=== PATIENT | male | born 1990 | race Caucasian/White ===

== ENCOUNTER 2022-12-08 09:09 | Emergency (ER) | payer SELFPAY ==
[2022-12-08 09:10] VITALS: BP 153/55; PULSE 89; RESP 15; TEMP 36.9; O2SAT 97; BMI 33.4
--- NOTE | 2022-12-08 09:39 | HMH.EDGENADL ---
Discharge Plan Disposition Patient Disposition: Home, Self-Care Condition: Good Prescriptions Prescriptions: No Action No Known Home Medications Activity Restrictions/Add. Instructions Additional Instructions/Restrictions: Drink more fluids while at work. I would add at least 2 L more liquid which you are currently drinking. Drinking sports drinks with electrolytes at work may help reduce your cramping. You should urinate pale urine and should urinate a couple more times during your shift than you are currently doing. You are being provided with a list of physicians available for follow-up of your condition. Please call a physician on this list to arrange a follow-up appointment as soon as possible. Clinical Impressions Clinical Impression: Acute dehydration, Cramps, muscle, general Instructions Patient Instructions: DI for Dehydration -- Adult Discharge ED Provider: Scott Murillo General Adult HPI General Chief complaint: Weakness Stated complaint: stomach cramps Time Seen by Provider: 12/08/22 09:30 Mode of Arrival: Ambulatory Source of Information: Patient Limitations: No Limitations Description of Symptoms (Recalled from ER Triage Doc. by RN): pt comes in [facility] c/o body aches, muscle spasms. pt states that he started a new job a few weeks ago and since then has been having these muscle cramps. symptoms off and on. History of Present Illness HPI narrative: States that he gets muscle spasms and cramps off and on for the past 9 months. 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 States it involves all muscles, more so his hamstrings. Cramps will last for several hours after he gets off of work. States that he tries to stay hydrated during his shift but works a long shift, 12 hours, and usually will only urinate once or twice. Decided to come in today just to figure out how to keep it from happening. Denies any chronic medical problems except mental health issues . He is on no prescription medications. He is a smoker. Denies alcohol use. Admits to using marijuana, but denies other drug use. Related Data Home Medications Medication Instructions Recorded Confirmed No Known Home Medications 12/08/22 12/08/22 Allergies Allergy/AdvReac Type Severity Reaction Status Date / Time No Known Allergies Allergy Verified 12/08/22 09:29 [facility] Disclaimer: The information contained in this section may have been updated after the patient was seen, as this information can be updated by other users. Social History Smoking Status: Current every day smoker ROS Obtained: Yes Systems reviewed as appropriate & no additional complaints except as documented Constitutional Constitutional: Reports body ache, Denies fever(s), Denies headache(s) and Denies weakness ENT Ears, Nose, Mouth, and Throat: Denies headache(s), Denies nasal discharge and Denies sore throat Cardiovascular Cardiovascular: Denies chest pain Respiratory Respiratory: Denies shortness of breath and Denies cough Gastrointestinal Gastrointestingal: Denies abdominal pain, constipation, diarrhea or vomiting Genitourinary Male Genitourinary: Denies difficulty urinating and Denies flank pain Musculoskeletal Musculoskeletal: Reports muscle cramps, Reports myalgias and Denies numbness Neurologic Neurologic: Denies headache(s), Denies numbness and Denies weakness Physical Exam General General appearance: alert and in no apparent distress Head Head exam: atraumatic and normocephalic Eye Eye exam: Present normal appearance and EOMI ENT ENT exam: Present mucous membranes moist Neck Neck exam: Present normal inspection and trachea midline Chest Chest inspection: Present normal inspection and symmetric chest wall rise Respiratory Respiratory exam: Present jo
[2022-12-08 09:49] LABS: Basophils # 0.1 K/mm3 (0-0.2); Basophils % 1.1 % (0.1-2.0); Chloride 99 mmol/L (98-107); Eosinophils # 0.1 K/mm3 (0.0-0.4); Eosinophils % 1.2 % (0.1-12.0); Hematocrit 48.5 % (42.0-52.0); Hemoglobin 16.5 g/dL (14.1-18.0); Lymphocytes # 2.5 K/mm3 (0.7-4.5); Lymphocytes % 22.6 % (10-50); Mean Corpuscular Hemoglobin 30.2 pg (27.0-31.2); Mean Corpuscular Volume 88.8 fl (80-94); Mean Platelet Volume 8.3 fl (7.4-10.4); Monocytes # 0.5 K/mm3 (0.1-1.0); Monocytes % 4.9 % (1.7-9.3); Neutrophils # 7.8 K/mm3 (1.8-7.8); Neutrophils % 70.2 % (37.0-80.0); Platelet Count 250 K/mm3 (142-424); Potassium 3.8 mmoL/L (3.5-5.1); Red Blood Count 5.46 M/mm3 (4.60-6.20); Red Cell Distribution Width 13.9 % (11.5-17.5); Sodium 138 mmol/L (136-145); White Blood Count 11.1 K/mm3 (4.8-10.8)
[2022-12-08 09:52] LABS: Alanine Aminotransferase 52 U/L (12-78); Albumin/Globulin Ratio 1.4 (1.1-1.8); Alkaline Phosphatase 91 U/L (38-126); Anion Gap 15.8 mEq/L (5-15); Aspartate Amino Transferase 73 U/L (17-59); Bilirubin,Total 0.6 mg/dl (0.2-1.3); Blood Urea Nitrogen 32 mg/dl (9-20); Calcium 9.1 mg/dl (8.4-10.2); Carbon Dioxide 27 mmol/L (22.0-30.0); Creatine Kinase 934 U/L (55-170); Creatinine Clearance Estimated 134 mL/min (50-200); Estimated Glomerular Filt Rate 77 ml/min (>60); GFR (African American) 93 ML/MIN (>60); Globulin 3.5 g/dL (1.3-3.2); Glucose 122 mg/dl (74-100); Total Protein,Serum 8.5 g/dl (6.3-8.2)
[2022-12-08 09:55] VITALS: BP 123/81; PULSE 77; O2SAT 98
[2022-12-08 10:01] VITALS: BP 161/57; PULSE 72; O2SAT 95
[2022-12-08 10:13] LABS: Magnesium 2.2 mg/dl (1.6-2.3)
[2022-12-08 12:15] VITALS: BP 137/81; PULSE 70; RESP 18; TEMP 37; O2SAT 95
[2022-12-08 12:15] LABS: Microscopic, Urine URINE MICROSCOPIC (MICROSCOPIC)
[2022-12-08 12:18] LABS: Appearance,Urine CLEAR (Clear); Bilirubin,Urine Negative (Negative); Blood, Urine Negative (Negative); Color,Urine YELLOW (Yellow); Glucose,Urine (UA) Negative (Negative); Ketones,Urine Negative (Negative); Leukocyte Esterase,Urine Negative (Negative); Nitrate,Urine Negative (Negative); PH,Urine 6.5 (5.0-8.5); Protein,Urine Negative (Negative); Specific Gravity, Urine 1.015 (1.005-1.030); Urobilinogen,Urine 0.2 EU/dl (0.2)
[2022-12-08 12:30] LABS: Amphetamine/Metha Screen,Urine Negative ng/ml (<1000); Squamous Epithelial Cell,Urine Occasional #/hpf (0-5)
[2022-12-08 12:31] LABS: Barbiturates Screen,Urine Negative ng/ml (<200); Benzodiazepines Screen,Urine Negative ng/ml (<200)
[2022-12-08 12:32] LABS: Cannabinoid Screen,Urine Positive ng/ml (<50)
[2022-12-08 12:33] LABS: Cocaine Screen,Urine Negative ng/ml (<300); Methadone Screen,Urine Negative ng/ml (<300)
[2022-12-08 12:34] LABS: Opiate Screen,Urine Negative ng/ml (<300)
[2022-12-08 12:35] LABS: Phencyclidine Screen,Urine Negative ng/ml (<25)
== END 2022-12-08 12:10 | disposition home or self-care (01) ==
PROVIDERS: Emergency Provider Emergency Medicine
DX: E86.0 Dehydration (principal); F17.210 Nicotine dependence, cigarettes, uncomplicated; R25.2 Cramp and spasm
CPT/HCPCS: 80053; 80305; 81001; 82550; 83735; 85025; 96361; 96374; 99285; J2405

== ENCOUNTER 2023-03-02 13:06 | Emergency (ER) | payer BC, SELFPAY ==
[2023-03-02 13:08] VITALS: BP 128/83; PULSE 80; RESP 20; TEMP 36.8; O2SAT 98; BMI 34.9
--- NOTE | 2023-03-02 13:24 | EXP.UTC ---
Discharge Plan Disposition Patient Disposition: Home, Self-Care Condition: Good Prescriptions Prescriptions: New mupirocin 2 % ointment 1 applic topical TID 7 Days Qty: 15 0RF amoxicillin-pot clavulanate 875-125 mg Tablet 1 tab PO Q12H Qty: 20 0RF Referrals Follow up/Referrals: Provider,Referral, [Primary Care Provider] - See instructions Activity Restrictions/Add. Instructions Additional Instructions/Restrictions: Keep the wound clean and dry. Keep a dressing on it if you are going to be getting it dirty. Watch the wound for signs of infection, such as redness, swelling, drainage, fever. etc. Take tylenol or ibuprofen for pain. Follow up with your regular doctor. GO TO THE ER FOR ANY WORSENING SYMPTOMS OR CONCERNS. I put in a referral to orthopedics. If you continue to have symptoms that are not improving after the next 48 to 72 hours, please call and get an appointment to be rechecked there. in rare cases, there can be nerve or tendon damage that requires further assessment and treatment. Clinical Impressions Clinical Impression: Puncture wound of left hand, Need for Tdap vaccination Instructions Patient Instructions: DI for Puncture Wound, Tetanus, Diphtheria, Pertussis (Tdap) Vaccine Discharge ED Provider: Edu Moreno [facility] General Stated complaint: AO 02/28 Dirty nail went in hand Mode of Arrival: Ambulatory Source of Information: Patient Limitations: No Limitations Time Seen by Provider: 03/02/23 13:24 Description of Symptoms (Recalled from Triage Doc. by RN): nail elizabeth into left hand at work HEENT Symptoms (Recalled from RN notes): Yes Resp Symptoms (Recalled from RN notes): No Skin Symptoms (Recalled from RN notes): No MS Symptoms (Recalled from RN notes): No Functional Status (Recalled from RN notes): n/a History of Present Illness Provider Complaint: He states that 2 days ago he was pushing a wall down when it fell and a nail punctured the palm of his left hand. Since then he has had pain at the site. His tetanus immunization is not up to date. Related Data Previous Rx's Medication Instructions Recorded amoxicillin 875 mg-potassium 1 tab PO Q12H #20 tabs 03/02/23 clavulanate 125 mg tablet mupirocin 2 % topical ointment 1 applic topical TID 7 days #15 03/02/23 grams Allergies Allergy/AdvReac Type Severity Reaction Status Date / Time No Known Allergies Allergy Verified 03/02/23 13:22 Worker's Comp Is this a Worker's Comp case?: No [facility] Disclaimer: The information contained in this section may have been updated after the patient was seen, as this information can be updated by other users. Social History Smoking Status: Current every day smoker alcohol intake: never current occupational status: employed Travel in the last 8 weeks: None ROS Obtained: Yes All systems reviewed & no additional complaints except as documented Constitutional Constitutional: Denies chills and Denies fever(s) Eyes Eyes: Denies eye discharge ENT Ears, Nose, Mouth, and Throat: Denies dizziness, Denies otalgia and Denies sore throat Cardiovascular Cardiovascular: Denies chest pain Respiratory Respiratory: Denies shortness of breath, Denies chest congestion, Denies cough, Denies stridor and Denies wheezing Gastrointestinal Gastrointestingal: Denies nausea or vomiting Musculoskeletal Musculoskeletal: Reports as per HPI and Denies arthralgias Integumentary/Breasts Skin/Breast: Reports as per HPI Neurologic Neurologic: Denies dizziness and Denies paresthesias Allergic/Immunologic Allergic/Immunologic: Denies wheezing Physical Exam General General appearance: alert and in no apparent distress Head Head exam: atraumatic, normocephalic and normal inspection Eye Eye exam: Present normal appearance, PERRL and EOMI ENT ENT exam: Present normal exam, normal oropharynx, mucous membranes moist, TM's norm
[2023-03-02 13:41] VITALS: BP 128/83; PULSE 80; RESP 20; TEMP 36.8; O2SAT 98
== END 2023-03-02 13:41 | disposition home or self-care (01) ==
PROVIDERS: Emergency Provider Nurse Practitioner Family
DX: S61.442A Puncture wound with foreign body of left hand, initial encounter (principal); F17.200 Nicotine dependence, unspecified, uncomplicated; W45.0XXA Nail entering through skin, initial encounter; Y99.0 Civilian activity done for income or pay
CPT/HCPCS: 90471; 90715; 99204; 99212; G0463

== ENCOUNTER 2023-05-23 07:11 | Emergency (ER) | payer MEDICAID, SELFPAY ==
[2023-05-23 07:12] VITALS: BP 148/92; PULSE 86; RESP 18; TEMP 36.8; O2SAT 97; BMI 33.4
[2023-05-23 07:27] VITALS: BMI 33.4
--- NOTE | 2023-05-23 07:27 | CT_ITS ---
PROCEDURE INFORMATION: Exam: CT Neck With Contrast Exam date and time: 05/23/2023 8:18 AM Age: 32 years old Clinical indication: Enlarged lymph nodes; Additional info: R/O neck mass, left side TECHNIQUE: Imaging protocol: Computed tomography of the neck with contrast. Radiation optimization: All CT scans at this facility use at least one of these dose optimization techniques: automated exposure control; mA and/or kV adjustment per patient size (includes targeted exams where dose is matched to clinical indication); or iterative reconstruction. Contrast material: ISOVUE; Contrast volume: 75 ml; Contrast route: IV; REPORTING DATA: Count of CT and Cardiac NM exams in prior 12 months: This patient has received 0 known CTs and 0 known cardiac nuclear medicine studies in the 12 months prior to the current study. COMPARISON: No relevant prior studies available. FINDINGS: Pharynx: Unremarkable. No significant tonsillar enlargement. Larynx: Unremarkable. Epiglottis is normal. Prevertebral and retropharyngeal spaces: Unremarkable. Salivary glands: Normal. Glands are normal in size. Thyroid: Normal. No enlarged or calcified nodules. Lymph nodes: A few mildly prominent left cervical chain lymph nodes are seen, most notably a 1.3 cm left level 5A lymph node. Trachea: Visualized trachea is unremarkable. Lungs: Unremarkable as visualized. Bones/joints: Unremarkable. No acute fracture. Soft tissues: No soft tissue masses are seen. IMPRESSION: A few mildly prominent left cervical chain lymph nodes are seen, which may be reactive. No soft tissue masses are seen.
[2023-05-23 07:36] VITALS: BP 120/74; PULSE 76; RESP 20; O2SAT 98
[2023-05-23 07:45] LABS: Basophils % 0.6 % (0.1-2.0); Eosinophils # 0.2 K/mm3 (0.0-0.4); Eosinophils % 2.6 % (0.1-12.0); Hematocrit 51.5 % (42.0-52.0); Hemoglobin 16.5 g/dL (14.1-18.0); Lymphocytes # 1.8 K/mm3 (0.7-4.5); Lymphocytes % 25.1 % (10-50); Mean Corpuscular HGB Conc 32.1 g/dL (31.8-35.4); Mean Corpuscular Hemoglobin 28.8 pg (27.0-31.2); Mean Corpuscular Volume 89.6 fl (80-94); Monocytes # 0.4 K/mm3 (0.1-1.0); Neutrophils # 4.7 K/mm3 (1.8-7.8); Neutrophils % 65.7 % (37.0-80.0); Platelet Count 192 K/mm3 (142-424); Red Blood Count 5.74 M/mm3 (4.60-6.20); Red Cell Distribution Width 13.6 % (11.5-17.5); White Blood Count 7.2 K/mm3 (4.8-10.8)
[2023-05-23 07:54] LABS: Chloride 101 mmol/L (98-107); Potassium 3.8 mmoL/L (3.5-5.1); Sodium 138 mmol/L (136-145)
[2023-05-23 07:57] LABS: Alanine Aminotransferase 44 U/L (12-78); Albumin Level 4.4 g/dl (3.5-5.0); Albumin/Globulin Ratio 1.3 (1.1-1.8); Alkaline Phosphatase 71 U/L (38-126); Anion Gap 12.8 mEq/L (5-15); Aspartate Amino Transferase 46 U/L (17-59); Bilirubin,Total 0.3 mg/dl (0.2-1.3); Blood Urea Nitrogen 23 mg/dl (9-20); Carbon Dioxide 28 mmol/L (22.0-30.0); Creatinine Clearance Estimated 134 mL/min (50-200); Estimated Glomerular Filt Rate 77 ml/min (>60); GFR (African American) 93 ML/MIN (>60); Globulin 3.3 g/dL (1.3-3.2); Total Protein,Serum 7.7 g/dl (6.3-8.2)
[2023-05-23 07:58] LABS: Calcium 8.4 mg/dl (8.4-10.2); Glucose 123 mg/dl (74-100)
[2023-05-23 08:00] VITALS: BP 121/73; PULSE 79; RESP 18; O2SAT 94
--- NOTE | 2023-05-23 08:08 | HMH.EDGENADL ---
Discharge Plan Disposition Patient Disposition: Home, Self-Care Condition: Good Chief Complaint: Skin/Abscess/Foreign Body Prescriptions Prescriptions: No Action mupirocin 2 % ointment 1 applic topical TID 7 Days Qty: 15 0RF amoxicillin-pot clavulanate 875-125 mg Tablet 1 tab PO Q12H Qty: 20 0RF Referrals Follow up/Referrals: Provider,Referral, MD [Primary Care Provider] - See instructions Activity Restrictions/Add. Instructions Additional Instructions/Restrictions: You need to follow-up with a general surgeon for possible excision of the lymph node Clinical Impressions Clinical Impression: Enlarged lymph node in neck Instructions Patient Instructions: Lymph Node Biopsy Discharge ED Provider: Tyshawn Becker General Adult HPI General Chief complaint: Skin/Abscess/Foreign Body Stated complaint: possible knot on Lt side of neck Time Seen by Provider: 05/23/23 08:13 Mode of Arrival: Ambulatory Source of Information: Patient Limitations: No Limitations Description of Symptoms (Recalled from ER Triage Doc. by RN): c/o small pea size knot on the left side of neck after rubbing his neck last night, states when he turns his neck it is tender. History of Present Illness HPI narrative: This is a 32-year-old male who presents to the emergency room with a knot on the left side of his neck which he first noticed last night. Patient has not had any recent infections. No fevers or chills no skin discoloration. Related Data Previous Rx's Medication Instructions Recorded amoxicillin 875 mg-potassium 1 tab PO Q12H #20 tabs 03/02/23 clavulanate 125 mg tablet mupirocin 2 % topical ointment 1 applic topical TID 7 days #15 03/02/23 grams Allergies Allergy/AdvReac Type Severity Reaction Status Date / Time No Known Allergies Allergy Verified 03/02/23 13:22 [facility] Disclaimer: The information contained in this section may have been updated after the patient was seen, as this information can be updated by other users. Social History (Updated 03/02/23 @ 13:50 by Edu Moreno APRN) Smoking Status: Current every day smoker alcohol intake: never current occupational status: employed Travel in the last 8 weeks: None ROS Obtained: Yes All systems reviewed & no additional complaints except as documented Skin see HPI HEENT no runny nose sore throat Pulmonary no cough or shortness of breath Cardiovascular no chest pain pressure heaviness GI no abdominal pain nausea or vomiting no dysuria pyuria hematuria Musculoskeletal no neck or back pain Endocrine no polydipsia polyuria or polyphasia Psych no SI or HI The rest of the systems were reviewed and found to be negative Physical Exam Narrative Physical exam: Skin: Warm and dry HEENT: Normocephalic atraumatic extract muscles are intact pupils are equal and reactive to light Neck: Supple along the left posterior lymph node chain there is an enlarged nonfluctuant freely movable nodule measuring approximately 2 cm in diameter. There is no overlying skin erythema. Lungs: Clear to auscultation Heart: Regular rate and rhythm Abdomen: NABS soft nontender Extremities: No clubbing cyanosis or edema Neurologic: No unilateral weakness or numbness Lymphatic: No cervical or inguinal adenopathy Musculoskeletal: No tenderness of the dorsal or lumbar spine Psych: No SI or HI General General appearance: alert Respiratory Respiratory exam: Present normal lung sounds bilaterally Cardiovascular Cardiovascular exam: Present regular rate Neurological Exam Neurological exam: Present alert Medical Decision Making Sumit Inquiry Pt receiving controlled substance: No Vital Signs: 05/23/23 07:12 05/23/23 07:36 Temperature 98.3 F Temperature Source Oral Pulse Rate 76 Pulse Rate [Left Radial] 86 Respiratory Rate 18 20 Blood Pressure 120/74 Blood Pressure [Right Arm] 148/92 H Blood Pressure Mean 90 Blood Pressure Mean [Right Arm] 110
[2023-05-23 08:23] LABS: Erythrocyte Sedimentation Rate 1 mm/hr (0-15)
[2023-05-23 08:31] VITALS: BP 103/53; PULSE 69; RESP 18; O2SAT 96
[2023-05-23 09:02] VITALS: BP 103/53; PULSE 71; RESP 16; TEMP 36.7
== END 2023-05-23 09:05 | disposition home or self-care (01) ==
PROVIDERS: Emergency Medicine; Emergency Provider Emergency Medicine
DX: R59.0 Localized enlarged lymph nodes (principal); F17.200 Nicotine dependence, unspecified, uncomplicated
CPT/HCPCS: 70491; 80053; 85025; 85651; 86140; 99284; 99285; Q9967

== ENCOUNTER → 2023-06-19 13:17 | Outpatient (CLI) | payer MEDICAID, SELFPAY ==
[2023-06-19 12:46] LABS: Basophils # 0.1 K/mm3 (0-0.2); Basophils % 0.8 % (0.1-2.0); Eosinophils # 0.2 K/mm3 (0.0-0.4); Eosinophils % 2.2 % (0.1-12.0); Hematocrit 48.6 % (42.0-52.0); Hemoglobin 15.3 g/dL (14.1-18.0); Lymphocytes # 2.2 K/mm3 (0.7-4.5); Lymphocytes % 30.3 % (10-50); Mean Corpuscular HGB Conc 31.6 g/dL (31.8-35.4); Mean Corpuscular Hemoglobin 28.8 pg (27.0-31.2); Mean Corpuscular Volume 91.3 fl (80-94); Mean Platelet Volume 9.1 fl (7.4-10.4); Monocytes # 0.4 K/mm3 (0.1-1.0); Monocytes % 6.1 % (1.7-9.3); Neutrophils # 4.4 K/mm3 (1.8-7.8); Neutrophils % 60.6 % (37.0-80.0); Platelet Count 179 K/mm3 (142-424); Red Blood Count 5.33 M/mm3 (4.60-6.20); Red Cell Distribution Width 13.8 % (11.5-17.5); White Blood Count 7.3 K/mm3 (4.8-10.8)
[2023-06-19 13:10] LABS: Alanine Aminotransferase 47 U/L (12-78); Albumin/Globulin Ratio 1.5 (1.1-1.8); Alkaline Phosphatase 75 U/L (38-126); Anion Gap 8.2 mEq/L (5-15); Aspartate Amino Transferase 46 U/L (17-59); Bilirubin,Total 0.2 mg/dl (0.2-1.3); Blood Urea Nitrogen 16 mg/dl (9-20); Calcium 8.5 mg/dl (8.4-10.2); Carbon Dioxide 27 mmol/L (22.0-30.0); Chloride 107 mmol/L (98-107); Chol/HDL Ratio 3.3 (1-3.5); Cholesterol 179 mg/dl (140-200); Estimated Glomerular Filt Rate 111 ml/min (>60); GFR (African American) 134 ML/MIN (>60); Globulin 2.6 g/dL (1.3-3.2); Glucose 122 mg/dl (74-100); HDL Cholesterol 54 mg/dl (40-60); Potassium 4.2 mmoL/L (3.5-5.1); Sodium 138 mmol/L (136-145); Total Protein,Serum 6.6 g/dl (6.3-8.2); Triglycerides 150 mg/dl (30-150); VLDL Cholesterol 30 mg/dL (0-40)
[2023-06-19 13:21] LABS: Direct LDL Cholesterol 95.24 mg/dL (100-129)
[2023-06-19 13:40] LABS: Thyroid Stimulating Hormone 0.44 uIU/mL (0.465-4.68)
[2023-06-19 13:55] LABS: Hemoglobin A1C 5.6 % (4.0-6.0)
[2023-06-20 09:19] LABS: HIV Screen 4th Generation wRfx Non Reactive (Non Reactive)
[2023-07-07 08:17] LABS: Hep A Ab, Total Negative; Hepatitis B Surface Antigen Negative
[2023-07-07 08:18] LABS: Hep B Core Ab, Total Negative; Hep B Surface Ab, Qual Reactive; Hepatitis C Antibody Non Reactive
[2023-07-07 08:19] LABS: Fibrosis Score 0.04; Fibrosis Stage F0
[2023-07-07 08:20] LABS: Alpha 2-Macroglobulins, Qn 138; Haptoglobin 126; Necroinflammat Activity Grade A0-A1; Necroinflammat Activity Score 0.19
[2023-07-07 08:21] LABS: ALT (SGPT) P5P 45; Apolipoprotein A-1 161; Bilirubin, Total 0.2; GGT 38
== END ==
PROVIDERS: PCP Emergency Medicine; Visit Provider Nurse Practitioner Family
DX: R53.83 Other fatigue (principal); M54.50 Low back pain, unspecified; R59.0 Localized enlarged lymph nodes; R73.09 Other abnormal glucose; E66.9 Obesity, unspecified; Z68.32 Body mass index [BMI] 32.0-32.9, adult; Z72.0 Tobacco use; Z11.4 Encounter for screening for human immunodeficiency virus [HIV]
CPT/HCPCS: 80053; 80061; 81596; 83036; 84443; 85025; 86703; 86704; 86706; 86708; 87340; 87380; 87522; G0432